=== PATIENT | male | born 1985 | race African-American/Black ===

== ENCOUNTER 2017-08-02 18:07 | Emergency (ER) | payer OTHER ==
[~2017-08-02] VITALS: Ht 185.4 cm; Wt 105.5 kg
[2017-08-02 18:08] VITALS: BP 188/107; PULSE 84; RESP 18; TEMP 98.5; O2SAT 99
[2017-08-02 20:19] VITALS: BP 146/98
--- NOTE | 2017-08-02 20:20 | PD ---
HPI Chief Complaint: ENT Complaint Time Seen by Provider: 20:01 Travel History International Travel<30 days: No Contact w/Intl Traveler<30days: No Traveled to known affect area: No History of Present Illness HPI 31-year-old black male presents from her department with a six-day history of tendinitis in his right ear. He states that he had a cold approximately one month ago but nothing here last few weeks. He has been taking Sudafed without relief. He states that he has had constant ringing in his right ear. He states that it always feels as if he has bionic hearing in his right ear and seemed to be much more sensitive. There is no palliative or exacerbating activity. He denies any fever or chills. No runny nose, cough or congestion. He denies any medication use otherwise. No excessive aspirin use. He denies any medications or over the counters other than the Sudafed. History Past Medical Histgory Narrative Medical Lazy left eye Tetanus Vaccination: < 5 Years Past Surgical History Surgical History: No Previous Surgery Social History Alcohol Use: Yes (`1 BEER DAILY) Tobacco Use: No Allergies-Medications (Allergen,Severity, Reaction): Coded Allergies: No Known Allergies (Verified , 05/18/16) Reported Meds & Prescriptions Reported Meds & Active Scripts Active No Active Prescriptions or Reported Medications Review of Systems General / Constitutional: No: Fever Eyes: No: Visual changes HENT: No: Headaches Cardiovascular: No: Chest Pain or Discomfort Respiratory: No: Shortness of Breath Gastrointestinal: No: Abdominal Pain Genitourinary: No: Dysuria Musculoskeletal: No: Pain Skin: No Rash Neurologic: No: Weakness Psychiatric: No: Depression Endocrine: No: Polydipsia Hematologic/Lymphatic: No: Easy Bruising Physical Exam Narrative GENERAL: Well-developed, well-nourished in no acute distress. Nontoxic appearing. HEAD: Normocephalic, atraumatic. EYES: Pupils equal round and reactive. Extraocular motions intact. No scleral icterus. No injection or drainage. ENT: TMs clear without erythema. Patient has good Valsalva. The external auditory canals clear. Nose: clear . Posterior pharynx is pink and moist. No tonsillar edema or exudate. Uvula midline. Airway patent. NECK: Trachea midline.Supple, nontender, moves head freely. No central bony tenderness or spasm. CARDIOVASCULAR: Regular rate and rhythm without murmurs, gallops, or rubs. RESPIRATORY: Clear to auscultation. Breath sounds equal bilaterally. No wheezes , rales, or rhonchi. GASTROINTESTINAL: Abdomen soft, non-tender, nondistended. No hepato-splenomegaly , or palpable masses. No guarding. EXTREMITIES: No clubbing, cyanosis, or edema. No joint tenderness, effusion, or edema noted. BACK: Nontender without deformity or crepitance. No flank tenderness. Data Data Last Documented VS Vital Signs Date Time Temp Pulse Resp B/P (MAP) Pulse Ox O2 Delivery O2 Flow Rate FiO2 08/02/17 18:08 98.5 84 18 188/107 (134) 99 Room Air MDM Medical Screen Exam Complete: Yes Emergency Medical Condition: No Differential Diagnosis Differential diagnosis: Benign tendinitis, medication induced enteritis, viral Narrative Course A medical screening exam was performed: At the time of evaluation the presenting medical condition was determined not to be of an emergent nature. The patient was given the option of receiving additional care, but declined. Patient was given options for additional community resources from which to obtain care. The Patient Has Been advised to seek medical attention for their presenting complaint. The patient has been advised to return to the ER at any time if an emergent condition develops. Primary Impression: Encounter for medical screening examination Scripts No Active Prescriptions or Reported Meds Condition: Zak Bolton Aug 02, 2017 20:20
== END 2017-08-02 20:23 | disposition left against medical advice (07) ==
LOC: NEPD 18:07
DX: H92.01 Otalgia, right ear (principal)
CPT/HCPCS: 99281